=== PATIENT | male | born 2000 | race Two or more races ===

== ENCOUNTER 2024-10-02 16:49 | Emergency (ER) | payer BC, SELFPAY ==
[2024-10-02 16:56] VITALS: BP 146/77; PULSE 106; RESP 18; TEMP 36.7; O2SAT 98
[2024-10-02 17:38] LABS: Influenza A QL RT-PCR Positive (Negative); Influenza B QL RT-PCR Negative (Negative); RSV RNA, RT-PCR Negative (Negative); SARS-CoV-2 RNA PCR Negative (Negative)
--- NOTE | 2024-10-02 17:59 | ED_ITS ---
HPI - URI/Sore Throat General Chief Complaint: Upper Respiratory Infection Stated Complaint: Flu symptom Time Seen by Provider: 10/02/24 17:46 History of Present Illness HPI Narrative: Patient with 2 d of URI sx, n/v/d, cough, f/c. Review of Systems Review of Systems: All systems reviewed & are unremarkable except as noted in HPI and below Exam Narrative: EXAMINATION OF ORGAN SYSTEMS/BODY AREAS: Constitutional: Vital signs per nursing GENERAL:[No acute distress, non-toxic appearing.] HEAD: Normal with no signs of head trauma. EYES: EOMI, conjunctiva normal ENT: Hearing grossly intact LUNGS: Nonlabored breathing. CTAB HEART: Minimally tachycardic ABD: [Soft], [nontender to palpation] EXT: Normal range of motion SKIN: [No rashes or lesions.] NEURO: [Alert and oriented x 3. No gross focal sensory or strength deficits.] PSYCH: Normal affect Course Vital Signs Vital signs: Vital Signs Temperature 98.0 F 10/02/24 16:56 Pulse Rate 106 H 10/02/24 16:56 Respiratory Rate 18 10/02/24 16:56 Blood Pressure 146/77 H 10/02/24 16:56 Pulse Oximetry 98 10/02/24 16:56 Oxygen Delivery Room Air 10/02/24 16:56 Temperature 98.0 F 10/02/24 16:56 Pulse Rate 106 H 10/02/24 16:56 Respiratory Rate 18 10/02/24 16:56 Blood Pressure 146/77 H 10/02/24 16:56 Pulse Oximetry 98 10/02/24 16:56 Oxygen Delivery Room Air 10/02/24 16:56 MDM - URI/Sore Throat MDM Narrative Medical decision making narrative: ED COURSE AND MEDICAL DECISION MAKING: This 24 year old patient presents with symptoms most suggestive of viral upper respiratory tract infection. Lungs are clear bilaterally without any respiratory distress or accessory muscle use. Positive for flu. Discharged home in stable condition with expectant management. Symptomatic treatment/scripts given. Return precautions were provided. Procedures: Pulse oximetry interpretation - not hypoxic. Review of medical records. Lab Data Labs: Lab Results 10/02/24 Range/Units 16:57 Influenza A (RT-PCR) Positive A (Negative) Influenza B (RT-PCR) Negative (Negative) RSV (RT-PCR) Negative (Negative) SARS-CoV-2 RNA (RT-PCR) Negative (Negative) Discharge Plan Discharge Clinical Impression: Flu, Upper respiratory infection Patient Disposition: Home, Self-Care Condition: Stable Instructions: Influenza (ED) Additional Instructions: Please follow-up with primary care doctor and take medications as prescribed. If you feel worse, come back to the hospital. Patient Language: Armenian Prescriptions: New acetaminophen [Tylenol Extra Strength] 500 mg tablet 1,000 mg PO Q6H PRN (Reason: pain) Qty: 50 0RF ibuprofen 600 mg tablet 600 mg PO TID PRN (Reason: fever or pain) Qty: 30 0RF ondansetron 4 mg tablet,disintegrating 4 mg PO Q8H PRN (Reason: nausea and vomiting) Qty: 10 0RF fluticasone propionate [Allergy Relief (fluticasone)] 50 mcg/actuation spray,suspension 1 spray intranasal DAILY Qty: 16 0RF Rx Instructions: administer into each nostril loperamide 2 mg capsule 2 mg PO Q6H PRN (Reason: loose stool) Qty: 14 0RF Follow-up/Referrals: PHYSICIAN,SKIDDER RUNNER [Primary Care Provider] - José Miguel Hazel MD [Physician] - 2 Days Stand Alone Forms: Work/School Release IP
--- OUTSIDE RECORDS SUMMARY | 2024-10-02 18:05 | XMS_ITS | Clinical Summary ---
Author Organization [facility] Address [address] [place] [address] Care Team Providers Care Poultry Buyer Name Role Phone Unavailable Primary Care Provider Unavailabl e Source Comments [facility],non-owned Affiliates and Associated Physician Practices is amultiple site organization consisting of ambulatory clinics and hospital sitesin [place], [place], [place] and [place]. This disclosure is being madepursuant to the Care Everywhere program and may not contain all information available regarding this patient. Last updated 18.[facility] [employer] Allergies No known active allergies Medications * Be aware that medications may not be up to date on this document. Alwaysverify current medications with the patient. Medication Sig Dispensed Refills Start Date End Date Status Other immoquib uses 3 x week- topical cream Active Social History Tobacco Use Types Packs/Day Years Used Date Smoking Tobacco: Never Assessed Sex and Gender Information Value Date Recorded Sex Assigned at Not on file Gender Identity Not on file Sexual Orientation Not on file Last Filed Vital Signs Vital Sign Reading Time Taken Comments Blood Pressure 117/71 03/18/2014 5:38 PM CDT Pulse 78 03/18/2014 7:55 PM CDT Temperature 35.8 C (96.4 F) 03/18/2014 7:55 PM CDT Respiratory Rate 18 03/18/2014 7:55 PM CDT Oxygen Saturation - - Inhaled Oxygen Concentration - - Weight 83.7 kg (184 lb 8.4 oz) 03/18/2014 5:38 P M CDT Height - - Body Mass Index - - Plan of Treatment Health Maintenance Due Date Last Done Comments HIV SCREENING 2013 HPV VACCINE (1 - Male 3-dose series) 2013 HEPATITIS C SCREENING 06/26/2016 DTAP/TDAP/TD VACCINES (1 - Tdap) 2017 HEPATITIS B VACCINE (1 of 3 - 19+ 3-dose series) 2017 COVID-19 VACCINE (1 - 2023-2 5 season) 2024 INFLUENZA VACCINE (#1) 2024 DEPRESSION SCREENING 08/22/2024 ZOSTER VACCINE (1 of 2) 2048 HIB VACCINE Aged Out No longer eligi ble based on patient's age to complete this topic MENINGOCOCCAL (Group B) VACCINE Aged Out No longer eligible based on patient's age to complete this topic MENINGOCOCCAL VACCINE Aged Out No benjamin amanda eligible based on patient's age to complete this topic PNEUMOCOCCAL VACCINE Aged Out No long er eligible based on patient's age to complete this topic
--- OUTSIDE RECORDS SUMMARY | 2024-10-02 18:05 | XMS_ITS | Referral Summary ---
Author Organization [facility] Address [address] [place] [address] Care Team Providers Care Supervisor Grips Name Role Phone Unavailable Primary Care Provider Unavailabl e Source Comments [facility],non-owned Affiliates and Associated Physician Practices is amultiple site organization consisting of ambulatory clinics and hospital sitesin [place], [place], [place] and [place]. This disclosure is being madepursuant to the Care Everywhere program and may not contain all information available regarding this patient. Last updated 18.[facility] [employer] Allergies No known active allergies Medications * [...] Mass Index - - Plan of Treatment Not on file
--- OUTSIDE RECORDS SUMMARY | 2024-10-02 18:05 | XMS_ITS | Patient Health Summary ---
Author Organization [facility] Address [address] [place] [address] Care Team Providers Care Insulation Engineman Name Role Phone Unavailable Primary Care Provider Unavailabl e Note from [facility],non-owned Affiliates and Associated Physician Practices is amultiple site organization consisting of ambulatory clinics and hospital sitesin [place], [place], [place] and [place]. This disclosure is being madepursuant to the Care Everywhere program and may not contain all information available regarding this patient. Last updated 18.[facility] [employer] Allergies No known active allergies Medications * Be aware that medications may not be up to date on this document. Alwaysverify current medications with the patient. * Other immoquib uses 3 x week- topical cream Social History Tobacco Use Types Packs/Day Years [...] - - Body Mass Index - - Procedures * XR FOOT LEFT 3VW OR MORE(Performed 03/18/2014) Performed for Fall from other slipping, tripping, or stumbling * XR HAND RIGHT 3VW OR MORE(Performed 10/12/2011) Performed for Injury, other and unspecified, finger * XR FINGER(S) RIGHT(Performed 07/14/2011) Performed for Injury, other and unspecified, finger * XR KNEE RIGHT 3VW(Performed 01/05/2011) Performed for Knee pain Results * FOOT - LEFT (03/18/2014 6:22 PM CDT) Anatomical Region Laterality Modality Ankle / Foot Radiographic Glenis ging 03/19/2014 7:03 AM CDT Impressions 03/19/2014 7:40 AM CDT No acute fracture or dislocation. D: Brigid Vazquez MD. Jazz Billings, have personally reviewed the images and I agree with this report. Narrative 03/19/2014 7:40 AM CDT Exam: Left foot, 3 views. Date: 03/18/2014; 1828 hrs. History: Hit foot on step 4 days ago. Pain in fourth digit. Comparison: No prior studies available for comparison. Findings: The alignment is normal. There is no acute fracture or dislocation. The joint spaces are preserved. No soft tissue abnormality or radiopaque foreign body is identified. Procedure Note Jazz Clemens MD - 03/19/2014 Exam: Left foot, 3 views. Date: 03/18/2014; 1828 hrs. History: Hit foot on step 4 days ago. Pain in fourth digit. Comparison: No prior studies available for comparison. Findings: The alignment is normal. There is no acute fracture or dislocation. The joint spaces are preserved. No soft tissue abnormality or radiopaque foreign body is identified. IMPRESSION No acute fracture or dislocation. D: Brigid Vazquez MD. Jazz Bililngs, have personally reviewed the images and I agree with this report. Yemi Edwards MD DIAGNOSTIC IMAGING O RDERABLES * XR HAND 3+ VW RIGHT (10/12/2011 8:56 AM SUPERVISOR PUMPING [employer]ATION) Anatomical Region Laterality Modality Wrist / Hand Radiographic Glenis ging 10/12/2011 9:00 AM SUPERVISOR [employer] Impressions 10/12/2011 9:00 AM SUPERVISOR [employer] No abnormality is seen. Narrative 10/12/2011 9:00 AM [employer] Three views of the right hand performed October 12, 2011. History: Pain in right fourth finger. History of anterior avulsion fracture involving the right fifth middle phalanx. AP lateral and oblique views of the right hand were obtained. Comparison is made with prior radiographs of the fourth finger obtained January 20, 2009 and July 14, 2011. Once again there is no evidence of osseous, articular, or soft tissue abnormality. Procedure Note Gloria Taylor MD - 10/12/2011 Three views of the right hand performed October 12, 2011. History: Pain in right fourth finger. History of anterior avulsion fracture involving the right fifth middle phalanx. AP lateral and oblique views of the right hand were obtained. Comparison is made with prior radiographs of the fourth finger obtained January 20, 2009 and July 14, 2011. Once again there is no evidence of osseous, articular, or soft tissue abnormality. IMPRESSION No abnormality is seen. Riley Osborne MD DIAGNOSTIC IMAGING O RDERABLES * XR FINGER(S) RIGHT (07/14/2011 11:45 AM SUPERVISOR [employer]) Anatomical Region Laterality Modality Wrist / Hand, Upper Extremity Ra diographic Imaging 07/14/2011 11:4 9 AM SUPER[employer] Impressions 07/14/2011 11:49 AM SUPERVISOR [employer] Normal exam. Narrative 07/14/2011 11:49 AM SUPERVISOR [employer] EXAMINATION: RIGHT XR FINGER(S) RIGHT*[id number] dated Jul 14, 2011 11:45:33 AM. HISTORY: Injury, other and unspecified, finger . FINDINGS: AP, lateral, and oblique views of the fourth finger were obtained. No prior examinations are available for comparison. The bone mineralization is normal. No fractures or dislocations are seen. No soft tissue swelling or radiopaque foreign bodies are noted. No other imaging abnormality is appreciated. Procedure Note Ronny Pelayo - 07/14/2011 EXAMINATION: RIGHT XR FINGER(S) RIGHT*[id number] dated Jul 14, 2011 11:45:33 AM. HISTORY: Injury, other and unspecified, finger . FINDINGS: AP, lateral, and oblique views of the fourth finger were obtained. No prior examinations are available for comparison. The bone mineralization is normal. No fractures or dislocations are seen. No soft tissue swelling or radiopaque foreign bodies are noted. No other imaging abnormality is appreciated. IMPRESSION Normal exam. Cori Issa CANE FLUME FEEDING MACHINE OPERATOR-SENIOR ACCOUNTING SPECIALIST DIAGNOSTIC IMAG ING ORDERABLES * XR RIGHT KNEE AP LAT AND PATELLA (01/05/2011 9:19 AM CDT) Anatomical Region Laterality Modality Lower Extremity Radiographic Glenis ging 01/05/2011 9:42 AM CDT Impressions 01/05/2011 11:35 AM CDT Findings suggestive of [place]-Schlatter's disease. The clinical finding of tenderness over the tibial tuberosity will confirm the diagnosis. D: Tye Lincoln MD Narrative 01/05/2011 11:35 AM CDT Right knee, 3 views 01/05/2011 No prior studies are available for comparison. Tiny osseous densities are seen just superior to the tibial tuberosity on the lateral view. The distal portion of the patellar tendon is swollen with indistinct borders. The soft tissues anterior to the tibial tuberosity are prominent. The distal femur, patella and fibula appear intact. No knee joint effusion is present. Procedure Note Gloria Taylor MD - 01/05/2011 Right knee, 3 views 01/05/2011 No prior studies are available for comparison. Tiny osseous densities are seen just superior to the tibial tuberosity on the lateral view. The distal portion of the patellar tendon is swollen with indistinct borders. The soft tissues anterior to the tibial tuberosity are prominent. The distal femur, patella and fibula appear intact. No knee joint effusion is present. IMPRESSION Findings suggestive of [place]-Schlatter's disease. The clinical finding of tenderness over the tibial tuberosity will confirm the diagnosis. D: Tye Lincoln MD [facility] DIAGNOSTIC IMAGING O RDERABLES
[2024-10-02 18:25] VITALS: O2SAT 99
== END 2024-10-02 20:19 | disposition home or self-care (01) ==
LOC: ANHED 18:03
PROVIDERS: Student in an Organized Health Care Education/Training Program; Emergency Provider Emergency Medicine
DX: J10.1 Influenza due to other identified influenza virus with other respiratory manifestations (principal); Z20.822 Contact with and (suspected) exposure to COVID-19
CPT/HCPCS: 87637; 99283